=== PATIENT | female | born 1990 | race Caucasian/White ===

== ENCOUNTER 2018-01-27 18:05 | Emergency (ER) | payer OTHER ==
[~2018-01-27] VITALS: Ht 165.1 cm; Wt 66.5 kg
[~2018-01-27 18:05] MED LIST: HYDROCODON-ACE1 EAC7 PO; IBUPROFEN800 MG PO; SUBOXONE 8 MG-1 EAC2 SL; VALTREX50 MG/ML PO
[2018-01-27 19:15] LABS: APPEARANCE SL.HAZY ((CLEAR)); BILIRUBIN NEGATIVE; BLOOD NEGATIVE; COLOR YELLOW ((YELLOW)); GLUCOSE (STRIP) NEGATIVE; KETONES NEGATIVE; LEUKOCYTES NEGATIVE; NITRITE NEGATIVE; PROTEIN (STRIP) NEGATIVE
[2018-01-27 19:23] LABS: BACTERIA RARE /HPF; EPITHELIAL CELLS 1+ /HPF; MUCUS TRACE /LPF; UCUL ADDED? NO; WHITE BLOOD CELLS 0-5 /HPF (0-5)
[2018-01-27] MEDS ORDERED: PYRIDIUM200 MG PO (19:36)
[2018-01-27 19:58] VITALS: BP 119/68
== END 2018-01-27 19:59 | disposition home or self-care (01) ==
LOC: EME 18:05
PROVIDERS: Physician Assistant
DX: R30.0 Dysuria (principal); Z87.440 Personal history of urinary (tract) infections; F17.200 Nicotine dependence, unspecified, uncomplicated
CPT/HCPCS: 81003; 81025; 99281; 99284